=== PATIENT | male | born 1960 | race Caucasian/White ===

== ENCOUNTER 2020-02-09 16:03 | Inpatient (IN) | payer MEDICARE, MEDICAID ==
[~2020-02-09] VITALS: Ht 188 cm; Wt 100.9 kg
[~2020-02-09 16:03] MED LIST: 0.9 % SODIUM CHLORIDE 10 ML VIAL ONE; AMLO5TAB PO; ATOR40TA7 PO; CHLO5CAP3 PO; CYCL10TA26 PO; FAMO40TA73 PO; IBUP-1984 PO; NITR0.4T SL; PHEN100C4 PO; etomidate 2mg/ml inj. ONE
--- NOTE | 2020-02-09 16:03 | NUR ---
Dr. Arellano to the door of the room and evaluated the patient from a distance and received some verbal report from REACH crew. Pt is intubated but copious amount of clear secretions noted. Respiratory therapist is attempting to suction the patient. Pt is bucking against the vent and is attempting to sit up. REACH crew gave additional fentanyl to attempt to help sedate the patient while transitioning care until the ED staff can take over the care and manage the patient's status.
[2020-02-09] MEDS ORDERED: normal saline 1000ml 1,000 ML IV ONE (16:05)
[2020-02-09] MEDS ORDERED: MIDAZolam 5mg/ml 2ml vial IV ONE (16:10)
[2020-02-09] MEDS ORDERED: succinylcholine 20mg/ml inj IV ONE ×2 (16:10→16:40)
[2020-02-09] MEDS ORDERED: midazolam 100mg in NS 100ml 100 ML IV PRN (16:10)
--- NOTE | 2020-02-09 16:15 | NUR ---
Pt continued to fight against the vent and bucking the ET Tube. Respiratory noted an air leak from the ET tube. Dr. Arellano to the bedside to extubate and re-intubate the patient. Due to being placed in a COVID-19 rule out status the equipment is being gathered and handed through the ante room to the ED staff to intubate the patient.
--- NOTE | 2020-02-09 16:20 | NUR ---
Pt is being given RSI medications given for the patient to be intubated. ET tube placed by Dr. Arellano, placement verified with color change, and lung sound auscultation. Pt placed on the ventilator and settings being managed by RT at bedside. Multiple attempts to start a second IV line and collect blood work has been unsuccessful. Will attempt to start another line momentarily.
--- NOTE | 2020-02-09 16:50 | NUR ---
Pt's sedation medications are being titrated to maintain proper sedation due to the ventilator at this time.
[2020-02-09 16:51] LABS: ABG BASE EXCESS -8.8 mmol/L (-2.0-3.0); ABG OXYGEN SATURATION 99.3 % (95-98); ABG PCO2 (T) 47.6 mmHg (35.0-45.0); ABG PH (T) 7.218 (7.350-7.450); ABG PO2 (T) 525.3 mmHg (83-108); ALLEN'S TEST POSITIVE; FCOHb 2.2 % (0.5-1.5); FMetHb 0.3 % (0.3-1.12); FO2Hb 96.8 % (94-100); PEEP 5 cm H2O; RESPIRATORY RATE 20 b/min; TIDAL VOLUME 400 mL; TOTAL HEMOGLOBIN 14.1 G/dl (14.0-17.9)
[2020-02-09 17:05] LABS: BASOPHILS # (AUTO) 0.1 X10'3 (0-0.2); BASOPHILS % (AUTO) 0.6 % (0-1); EOSINOPHILS # (AUTO) 0.1 X10'3 (0-0.9); EOSINOPHILS % (AUTO) 0.9 % (0-6); HEMATOCRIT 40.2 % (42.0-52.0); HEMOGLOBIN 13.4 g/dl (14.0-17.9); LYMPHOCYTES # (AUTO) 5.3 X10'3 (1.1-4.8); MEAN CORPUSCULAR HEMOGLOBIN 31.4 PG (27.0-31.0); MEAN CORPUSCULAR HGB CONC 33.4 g/dL (33.0-36.5); MEAN CORPUSCULAR VOLUME 93.9 FL (78-98); MEAN PLATELET VOLUME 7.6 FL (7.4-10.4); MONOCYTES # (AUTO) 0.7 X10'3 (0-0.9); MONOCYTES % (AUTO) 5.8 % (2-12); NEUTROPHILS # (AUTO) 5.8 X10'3 (1.8-7.7); NEUTROPHILS % (AUTO) 48.7 % (42-75); PLATELET COUNT 280 X10'3 (140-440); RED BLOOD COUNT 4.28 X10'6 (4.70-6.10); RED CELL DISTRIBUTION WIDTH 13.4 % (11.5-14.5)
[2020-02-09] MEDS ORDERED: FENTANYL-0.9 % NACL/PF 100 ML IV PRN (17:05)
[2020-02-09 17:17] LABS: PARTIAL THROMBOPLASTIN TIME 24 SECONDS (22-32)
[2020-02-09] MEDS ORDERED: LIDOcaine 2% 10ml TOPICAL JELLY (Urojet) TP ONE (17:20)
[2020-02-09] MEDS ORDERED: midazolam 2 mg/2 ml injection IV ONE (17:20)
[2020-02-09] MEDS ORDERED: potassium Cl 20 mEq SR tablet PO PRN ×2 (17:20)
[2020-02-09] MEDS ORDERED: acetaminophen 325mg tablet PO PRN ×2 (17:20)
[2020-02-09] MEDS ORDERED: potassium CL 10mEq/100ml bag 100 ML IV PRN ×2 (17:20)
[2020-02-09] MEDS ORDERED: ipratropium/albuterol 3ml nebule NEB PRN (17:20)
[2020-02-09] MEDS ORDERED: fentaNYL/PF 50MCG/1 ML 2ML syringe IV PRN (17:20)
[2020-02-09 17:23] LABS: ALANINE AMINOTRANSFERASE 27 U/L (12-78); ALBUMIN 3.7 G/DL (3.4-5.0); ALBUMIN/GLOBULIN RATIO 1.2 (1.1-1.5); ALKALINE PHOSPHATASE 47 IU/L (46-116); ANION GAP 12 (8-16); ASPARTATE AMINO TRANSFERASE 41 U/L (10-37); BILIRUBIN,TOTAL 0.3 MG/DL (0.1-1.0); BLOOD UREA NITROGEN 9 MG/DL (7-18); BUN/CREATININE RATIO 10.6 (5.4-32.0); CALCIUM 7.4 MG/DL (8.5-10.1); CHLORIDE 107 MMOL/L (99-107); CREATININE 0.85 MG/DL (0.60-1.10); GLUCOSE 124 MG/DL (70-104); SODIUM 142 MMOL/L (135-145); TOTAL CARBON DIOXIDE 22.7 MMOL/L (24-32); TOTAL PROTEIN 6.7 G/DL (6.4-8.2); eGFR > 90 ML/MIN
[2020-02-09] MEDS ORDERED: etomidate 2mg/ml inj. IV ONE (17:25)
[2020-02-09 17:28] LABS: ETHANOL 0.233 GM/DL (0.0-0.010)
[2020-02-09 17:30] LABS: LACTATE DEHYDROGENASE 245 U/L (85-227); POTASSIUM 3.8 MMOL/L (3.5-5.1)
--- NOTE | 2020-02-09 17:30 | NUR ---
POSITIVE PLACEMENT ETT PER DR PARKINSON VIA XRAY. PRIMARY RN WILMAN AND RT AT BEDSIDE MADE AWARE.
--- NOTE | 2020-02-09 17:30 | NUR ---
DR PARKINSON STATES NO HEAD CT WILL BE ORDERED FOR PATIENT, PRIMARY RN WILMAN MADE AWARE.
--- NOTE | 2020-02-09 17:38 | NUR ---
COVID-RAPID SWAB OBTAINED PER MD ORDER.
[2020-02-09] MEDS ORDERED: ALBU18HF2 (17:45)
[2020-02-09] MEDS ORDERED: IBUP-1986 (17:45)
[2020-02-09] MEDS ORDERED: ATOR20TA66 PO (17:45)
[2020-02-09] MEDS ORDERED: AMOX500C4 (17:45)
[2020-02-09] MEDS ORDERED: GABA-532 PO (17:45)
[2020-02-09] MEDS: methylPREDNISolone sod succ 125mg/2ml vial IV SCH ×2 (17:46→20:36)
[2020-02-09] MEDS: normal saline 1000ml 1,000 ML IV SCH (17:47)
[2020-02-09] MEDS: CefTRIAXone/D5W-Rocephin 1gm 50 ML IV SCH (17:51)
--- NOTE | 2020-02-09 18:16 | NUR ---
Pt's sister, Janeth, called requesting update on pt's condition.
--- NOTE | 2020-02-09 18:30 | NUR ---
CALL FROM [facility] STATES PATIENT RECENTLY SEEN AND HAD LABS DRAWN AT [facility] [phone] MADE AWARE.
[2020-02-09 18:33] LABS: CLARITY,URINE CLEAR (Clear); COLOR,URINE YELLOW (Yellow); GLUCOSE, URINE NEGATIVE (Neg); KETONES,URINE TRACE mg/dl (Neg); LEUKOCYTE ESTERASE ,URINE NEGATIVE (Neg); NITRITES, URINE NEGATIVE (Neg); OCCULT BLOOD,URINE NEGATIVE (Neg); PH,URINE 5.5 (4.8-8.0); PROTEIN,URINE NEGATIVE (Neg); UROBILINOGEN,URINE 0.2 E.U/dL (0.2-1.0)
[2020-02-09 18:45] LABS: URINE AMPHETAMINE SCREEN NEGATIVE (Neg); URINE BARBITUATE SCREEN NEGATIVE (Neg); URINE BENZODIAZEPINES SCREEN POSITIVE (Neg); URINE CANNABINOID SCREEN NEGATIVE (Neg); URINE COCAINE SCREEN NEGATIVE (Neg); URINE METHADONE SCREEN NEGATIVE (Neg); URINE OPIATE SCREEN NEGATIVE (Neg); URINE PHENCYCLIDINE SCREEN NEGATIVE (Neg)
[2020-02-09 18:50] LABS: UA COLLECTION TYPE FOLEY CATH
[2020-02-09 19:05] LABS: TOTAL CELLS COUNTED 100
[2020-02-09 19:07] LABS: PLATELET ESTIMATE NORMAL
[2020-02-09 19:45] VITALS: BP 156/81
[2020-02-09] MEDS: ipratropium/albuterol 3ml nebule NEB SCH ×2 (19:50→23:08)
[2020-02-09 20:00] VITALS: BP 94/50
[2020-02-09] MEDS: famotidine/PF 10 mg/ml inj IV SCH (20:36)
[2020-02-09] MEDS: heparin, porcine 5000 units/ml vial SQ SCH (20:36)
[2020-02-09] MEDS: docusate sod 100mg capsule PO SCH (20:36)
[2020-02-09 21:00] VITALS: BP 102/55
[2020-02-09] MEDS: midazolam 100mg in NS 100ml 100 ML IV PRN (21:46)
[2020-02-09] MEDS: FENTANYL-0.9 % NACL/PF 100 ML IV PRN (21:46)
[2020-02-09 22:00] VITALS: BP 102/56
[2020-02-09 23:00] VITALS: BP 99/59
[2020-02-10] VITALS (24 sets, daily range): BP systolic 97–142; BP diastolic 52–81
[2020-02-10] MEDS: midazolam 100mg in NS 100ml 100 ML IV PRN ×4 (02:36→21:51)
[2020-02-10] MEDS: methylPREDNISolone sod succ 125mg/2ml vial IV SCH ×4 (02:36→19:50)
[2020-02-10] MEDS: FENTANYL-0.9 % NACL/PF 100 ML IV PRN ×3 (02:36→19:51)
[2020-02-10] MEDS: normal saline 1000ml 1,000 ML IV SCH ×2 (03:39→21:51)
[2020-02-10] MEDS: ipratropium/albuterol 3ml nebule NEB SCH ×6 (03:44→23:09)
[2020-02-10 03:56] LABS: ABG BASE EXCESS -5.1 mmol/L (-2.0-3.0); ABG HCO3 21.8 mmol/L (22.0-26.0); ABG OXYGEN SATURATION 95.8 % (95-98); ABG PCO2 (T) 46.5 mmHg (35.0-45.0); ABG PH (T) 7.285 (7.350-7.450); ABG PO2 (T) 83.5 mmHg (83-108); ALLEN'S TEST POSITIVE; FCOHb 0.1 % (0.5-1.5); FMetHb 0.1 % (0.3-1.12); FO2Hb 95.6 % (94-100); PATIENT TEMPERATURE 36.2; PEEP 5 cm H2O; RESPIRATORY RATE 20 b/min; TIDAL VOLUME 450 mL; TOTAL HEMOGLOBIN 13.2 G/dl (14.0-17.9)
[2020-02-10 03:59] LABS: BASOPHILS % (AUTO) 0.1 % (0-1); EOSINOPHILS % (AUTO) 0 % (0-6); HEMATOCRIT 39.2 % (42.0-52.0); LYMPHOCYTES # (AUTO) 0.8 X10'3 (1.1-4.8); LYMPHOCYTES % (AUTO) 6.9 % (21-51); MEAN CORPUSCULAR HEMOGLOBIN 31.2 PG (27.0-31.0); MEAN CORPUSCULAR HGB CONC 33.1 g/dL (33.0-36.5); MEAN CORPUSCULAR VOLUME 94.3 FL (78-98); MEAN PLATELET VOLUME 7.6 FL (7.4-10.4); MONOCYTES # (AUTO) 0.1 X10'3 (0-0.9); MONOCYTES % (AUTO) 1.2 % (2-12); NEUTROPHILS # (AUTO) 10.8 X10'3 (1.8-7.7); NEUTROPHILS % (AUTO) 91.8 % (42-75); PLATELET COUNT 224 X10'3 (140-440); RED BLOOD COUNT 4.15 X10'6 (4.70-6.10); RED CELL DISTRIBUTION WIDTH 13.6 % (11.5-14.5); WHITE BLOOD COUNT 11.8 X10'3 (4.5-11.0)
[2020-02-10 04:11] LABS: ALANINE AMINOTRANSFERASE 26 U/L (12-78); ALBUMIN 3.4 G/DL (3.4-5.0); ALBUMIN/GLOBULIN RATIO 1.2 (1.1-1.5); ALKALINE PHOSPHATASE 37 IU/L (46-116); ANION GAP 9 (8-16); ASPARTATE AMINO TRANSFERASE 29 U/L (10-37); BILIRUBIN,TOTAL 0.2 MG/DL (0.1-1.0); BLOOD UREA NITROGEN 13 MG/DL (7-18); BUN/CREATININE RATIO 13.8 (5.4-32.0); CALCIUM 7.8 MG/DL (8.5-10.1); CHLORIDE 108 MMOL/L (99-107); CREATININE 0.94 MG/DL (0.60-1.10); GLUCOSE 139 MG/DL (70-104); MAGNESIUM 2.1 MG/DL (1.5-2.4); PHOSPHORUS 4.4 MG/DL (2.3-4.5); SODIUM 141 MMOL/L (135-145); TOTAL CARBON DIOXIDE 23.8 MMOL/L (24-32); TOTAL PROTEIN 6.3 G/DL (6.4-8.2); eGFR 82 ML/MIN
[2020-02-10] MEDS: MVI, adult No.4 with vit. K 10 ML in dextrose 5% water 500ml 500 ML IV SCH ×2 (07:11)
[2020-02-10] MEDS: thiamine inj. 100 MG in normal saline 100ml IV soln 100 ML IV SCH (07:17)
[2020-02-10] MEDS: azithromycin/NS 500mg/250ml 250 ML IV SCH (07:17)
[2020-02-10] MEDS: CefTRIAXone/D5W-Rocephin 1gm 50 ML IV SCH (07:17)
[2020-02-10] MEDS: docusate sod 100mg capsule PO SCH ×2 (07:18→20:27)
[2020-02-10] MEDS: gabapentin 300mg capsule PO SCH ×3 (07:18→20:27)
[2020-02-10] MEDS: amLODIPine 5mg tablet PO SCH (07:18)
[2020-02-10] MEDS: heparin, porcine 5000 units/ml vial SQ SCH ×2 (07:18→19:50)
[2020-02-10] MEDS: atorvastatin 20mg tablet PO SCH (07:18)
[2020-02-10] MEDS: famotidine/PF 10 mg/ml inj IV SCH ×2 (07:54→19:50)
[2020-02-10] MEDS ORDERED: famotidine 20mg tablet PO SCH (08:00)
--- NOTE | 2020-02-10 09:23 | NUR ---
Pt moved to room 2010 as he has been cleared of Covid isolation
--- NOTE | 2020-02-10 10:59 | NUR ---
Physical Therapy attempted to work with patient
--- NOTE | 2020-02-10 11:14 | NUR ---
Initial: Pt intubated admit w/ acute respiratory failure, etoh abuse blood alcohol.233 on admit, and hx COPD. Pt has been ruled out for covid. Is receiving thiamin/banana bag for etoh. OG in place w/ MAP 72 this AM. TF recs below in case prolonged intubation; bed scale this AM ~97kg per RN since pt does have a pillow and additional items which cannot be removed on bed currently. New BMI 27. Will continue to monitor. Rec: 1. IF TF; Vital HP at 90ml/hr goal 2. IF TF; water flush 200ml Q4 3. IF TF; PALB Q /; daily wts 4. thiamin, folic, MVI given etoh hx 5. upon extubation; advance diet as medically indicated to heart healthy Addendum: 02/10/20 at [address] Amended: Links added.
[2020-02-10] MEDS: lactobacillus rhamnosus 10,000 MMU CELLS/CAPSULE PO SCH (19:50)
[2020-02-10] MEDS: mineral oil/petrolatum ophthal oint EACHEYE SCH (20:27)
[2020-02-11] VITALS (24 sets, daily range): BP systolic 106–176; BP diastolic 55–78
[2020-02-11] MEDS: midazolam 100mg in NS 100ml 100 ML IV PRN ×5 (01:09→20:14)
[2020-02-11] MEDS: FENTANYL-0.9 % NACL/PF 100 ML IV PRN ×4 (01:13→21:28)
[2020-02-11] MEDS: mineral oil/petrolatum ophthal oint EACHEYE SCH ×4 (02:00→20:05)
[2020-02-11] MEDS: methylPREDNISolone sod succ 125mg/2ml vial IV SCH ×4 (02:00→20:04)
[2020-02-11] MEDS: ipratropium/albuterol 3ml nebule NEB SCH ×6 (03:18→23:05)
[2020-02-11 04:00] LABS: ABG BASE EXCESS -2.6 mmol/L (-2.0-3.0); ABG OXYGEN SATURATION 91.1 % (95-98); ABG PCO2 (T) 41.1 mmHg (35.0-45.0); ABG PH (T) 7.361 (7.350-7.450); ABG PO2 (T) 55.9 mmHg (83-108); ALLEN'S TEST POSITIVE; FCOHb 0.3 % (0.5-1.5); FO2Hb 90.8 % (94-100); PATIENT TEMPERATURE 36.2; PEEP 5 cm H2O; RESPIRATORY RATE 20 b/min; TIDAL VOLUME 450 mL; TOTAL HEMOGLOBIN 12.9 G/dl (14.0-17.9)
[2020-02-11 05:38] LABS: BASOPHILS # (AUTO) 0.1 X10'3 (0-0.2); BASOPHILS % (AUTO) 0.3 % (0-1); EOSINOPHILS % (AUTO) 0 % (0-6); HEMATOCRIT 38.6 % (42.0-52.0); HEMOGLOBIN 12.6 g/dl (14.0-17.9); LYMPHOCYTES # (AUTO) 1.1 X10'3 (1.1-4.8); LYMPHOCYTES % (AUTO) 5.6 % (21-51); MEAN CORPUSCULAR HEMOGLOBIN 30.9 PG (27.0-31.0); MEAN CORPUSCULAR HGB CONC 32.6 g/dL (33.0-36.5); MEAN CORPUSCULAR VOLUME 94.8 FL (78-98); MEAN PLATELET VOLUME 8.7 FL (7.4-10.4); MONOCYTES # (AUTO) 0.9 X10'3 (0-0.9); MONOCYTES % (AUTO) 4.8 % (2-12); NEUTROPHILS # (AUTO) 17.4 X10'3 (1.8-7.7); NEUTROPHILS % (AUTO) 89.3 % (42-75); PLATELET COUNT 237 X10'3 (140-440); RED BLOOD COUNT 4.08 X10'6 (4.70-6.10); RED CELL DISTRIBUTION WIDTH 13.6 % (11.5-14.5); WHITE BLOOD COUNT 19.5 X10'3 (4.5-11.0)
[2020-02-11 05:48] LABS: ALANINE AMINOTRANSFERASE 23 U/L (12-78); ALBUMIN 3.3 G/DL (3.4-5.0); ALBUMIN/GLOBULIN RATIO 1.1 (1.1-1.5); ALKALINE PHOSPHATASE 35 IU/L (46-116); ANION GAP 9 (8-16); BILIRUBIN,TOTAL 0.4 MG/DL (0.1-1.0); BLOOD UREA NITROGEN 17 MG/DL (7-18); BUN/CREATININE RATIO 19.1 (5.4-32.0); CALCIUM 8.2 MG/DL (8.5-10.1); CHLORIDE 107 MMOL/L (99-107); CREATININE 0.89 MG/DL (0.60-1.10); GLUCOSE 135 MG/DL (70-104); MAGNESIUM 2.4 MG/DL (1.5-2.4); SODIUM 141 MMOL/L (135-145); TOTAL CARBON DIOXIDE 25.4 MMOL/L (24-32); TOTAL PROTEIN 6.4 G/DL (6.4-8.2); eGFR 88 ML/MIN
[2020-02-11 05:49] LABS: ASPARTATE AMINO TRANSFERASE 33 U/L (10-37); PHOSPHORUS 3.5 MG/DL (2.3-4.5); POTASSIUM 4.7 MMOL/L (3.5-5.1)
[2020-02-11] MEDS: normal saline 1000ml 1,000 ML IV SCH ×2 (07:01→23:05)
[2020-02-11] MEDS: docusate sod 100mg capsule PO SCH (08:00)
[2020-02-11 08:12] LABS: GASTRIC OCCULT BLOOD POSITIVE (Neg)
[2020-02-11] MEDS: thiamine inj. 100 MG in normal saline 100ml IV soln 100 ML IV SCH (08:31)
[2020-02-11] MEDS: azithromycin/NS 500mg/250ml 250 ML IV SCH (08:31)
[2020-02-11] MEDS: CefTRIAXone/D5W-Rocephin 1gm 50 ML IV SCH (08:31)
[2020-02-11] MEDS: heparin, porcine 5000 units/ml vial SQ SCH ×2 (08:32→20:05)
[2020-02-11] MEDS: famotidine/PF 10 mg/ml inj IV SCH ×2 (08:32→20:04)
[2020-02-11] MEDS: MVI, adult No.4 with vit. K 10 ML in dextrose 5% water 500ml 500 ML IV SCH ×2 (08:32)
[2020-02-11] MEDS: atorvastatin 20mg tablet PO SCH (08:38)
[2020-02-11] MEDS: amLODIPine 5mg tablet PO SCH (08:38)
[2020-02-11] MEDS: lactobacillus rhamnosus 10,000 MMU CELLS/CAPSULE PO SCH ×2 (08:38→20:04)
[2020-02-11] MEDS: gabapentin 300mg capsule PO SCH (08:39)
--- NOTE | 2020-02-11 08:42 | NUR ---
fentanyl reassessment not not at 0200 and gentears not reported as given.
[2020-02-11] MEDS ORDERED: acetaminophen 325mg/10.15ml oral unit dose solution OGT PRN (08:49)
[2020-02-11] MEDS ORDERED: POTASSIUM BICARB 20meq eff tab 20 MEQ TABLET.EFF OGT PRN ×2 (08:49→08:50)
[2020-02-11] MEDS: dexmedetomidin/NS 400mcg/100ml 100 ML IV SCH ×2 (10:58→18:09)
--- NOTE | 2020-02-11 11:52 | NUR ---
TF Consult: Pt remains intubated to start TF today per MD. MAP 96 this AM. Recs below. Will monitor for TF tolerance. Initial: Pt intubated admit w/ acute respiratory failure, etoh abuse blood alcohol.233 on admit, and hx COPD. Pt has been ruled out for covid. Is receiving thiamin/banana bag for etoh. OG in place w/ MAP 72 this AM. TF recs below in case prolonged intubation; bed scale this AM ~97kg per RN since pt does have a pillow and additional items which cannot be removed on bed currently. New BMI 27. Will continue to monitor. Rec: 1. TF per MD using Vital HP at 90ml/hr goal; to provide 2160ml fluid, 1814ml free water, 2160kcals, and 189g protein. 2. additional water flush 200ml Q4 3. PALB Q /; daily wts 4. thiamin, folic, MVI given etoh hx 5. routine bowel care 6. upon extubation; advance diet as medically indicated to heart healthy Addendum: 02/11/20 at [address] Amended: Links added.
[2020-02-11] MEDS: gabapentin 300mg capsule OGT SCH ×2 (13:22→21:00)
--- NOTE | 2020-02-11 18:17 | NUR ---
Problems reprioritized. Patient report given, questions answered & plan of care reviewed with CINDY RN.
[2020-02-11] MEDS: docusate sodium 100mg/10ml UD cup OGT SCH (20:04)
[2020-02-12] VITALS (23 sets, daily range): BP systolic 123–206; BP diastolic 59–89
[2020-02-12] MEDS: dexmedetomidin/NS 400mcg/100ml 100 ML IV SCH ×2 (00:43→13:27)
[2020-02-12] MEDS: methylPREDNISolone sod succ 125mg/2ml vial IV SCH ×2 (01:40→07:31)
[2020-02-12] MEDS: mineral oil/petrolatum ophthal oint EACHEYE SCH ×2 (02:03→07:21)
[2020-02-12] MEDS: ipratropium/albuterol 3ml nebule NEB SCH ×6 (03:07→23:00)
[2020-02-12] MEDS: FENTANYL-0.9 % NACL/PF 100 ML IV PRN (03:39)
[2020-02-12] MEDS: midazolam 100mg in NS 100ml 100 ML IV PRN (03:39)
[2020-02-12 03:44] LABS: BASOPHILS % (AUTO) 0.2 % (0-1); EOSINOPHILS % (AUTO) 0 % (0-6); HEMATOCRIT 40.7 % (42.0-52.0); HEMOGLOBIN 13.4 g/dl (14.0-17.9); LYMPHOCYTES # (AUTO) 0.9 X10'3 (1.1-4.8); LYMPHOCYTES % (AUTO) 4.1 % (21-51); MEAN CORPUSCULAR HEMOGLOBIN 30.9 PG (27.0-31.0); MEAN CORPUSCULAR VOLUME 93.5 FL (78-98); MEAN PLATELET VOLUME 7.7 FL (7.4-10.4); MONOCYTES # (AUTO) 0.8 X10'3 (0-0.9); MONOCYTES % (AUTO) 3.6 % (2-12); NEUTROPHILS # (AUTO) 20.5 X10'3 (1.8-7.7); NEUTROPHILS % (AUTO) 92.1 % (42-75); PLATELET COUNT 210 X10'3 (140-440); RED BLOOD COUNT 4.35 X10'6 (4.70-6.10); RED CELL DISTRIBUTION WIDTH 13.5 % (11.5-14.5); WHITE BLOOD COUNT 22.2 X10'3 (4.5-11.0)
[2020-02-12 03:49] LABS: ALANINE AMINOTRANSFERASE 11 U/L (12-78); ALBUMIN 3.2 G/DL (3.4-5.0); ALKALINE PHOSPHATASE 36 IU/L (46-116); ANION GAP 6 (8-16); ASPARTATE AMINO TRANSFERASE 25 U/L (10-37); BILIRUBIN,TOTAL 0.3 MG/DL (0.1-1.0); BLOOD UREA NITROGEN 16 MG/DL (7-18); BUN/CREATININE RATIO 19.3 (5.4-32.0); CALCIUM 8.2 MG/DL (8.5-10.1); CHLORIDE 107 MMOL/L (99-107); CREATININE 0.83 MG/DL (0.60-1.10); GLUCOSE 164 MG/DL (70-104); MAGNESIUM 2.3 MG/DL (1.5-2.4); PHOSPHORUS 3.5 MG/DL (2.3-4.5); POTASSIUM 4.2 MMOL/L (3.5-5.1); SODIUM 141 MMOL/L (135-145); TOTAL CARBON DIOXIDE 27.9 MMOL/L (24-32); TOTAL PROTEIN 6.5 G/DL (6.4-8.2); eGFR > 90 ML/MIN
[2020-02-12 04:25] LABS: ABG BASE EXCESS 0.9 mmol/L (-2.0-3.0); ABG HCO3 26.5 mmol/L (22.0-26.0); ABG OXYGEN SATURATION 92.4 % (95-98); ABG PCO2 (T) 45.1 mmHg (35.0-45.0); ABG PH (T) 7.384 (7.350-7.450); ABG PO2 (T) 61.4 mmHg (83-108); FCOHb 0.2 % (0.5-1.5); FMetHb 0.3 % (0.3-1.12); FO2Hb 91.9 % (94-100); PATIENT TEMPERATURE 36.5; PEEP 5 cm H2O; RESPIRATORY RATE 20 b/min; TIDAL VOLUME 450 mL; TOTAL HEMOGLOBIN 13.2 G/dl (14.0-17.9)
--- NOTE | 2020-02-12 06:21 | NUR ---
Patient in room CICU 2009. I have received report from Rubi CANTU and had the opportunity to ask questions and assume patient care.
[2020-02-12] MEDS: MVI, adult No.4 with vit. K 10 ML in dextrose 5% water 500ml 500 ML IV SCH ×2 (07:30)
[2020-02-12] MEDS: azithromycin/NS 500mg/250ml 250 ML IV SCH (07:30)
[2020-02-12] MEDS: CefTRIAXone/D5W-Rocephin 1gm 50 ML IV SCH (07:31)
[2020-02-12] MEDS: famotidine/PF 10 mg/ml inj IV SCH ×2 (07:31→19:58)
[2020-02-12] MEDS: thiamine inj. 100 MG in normal saline 100ml IV soln 100 ML IV SCH (07:31)
[2020-02-12] MEDS: docusate sodium 100mg/10ml UD cup OGT SCH ×2 (07:31→20:00)
[2020-02-12] MEDS: amLODIPine 5mg tablet OGT SCH (07:32)
[2020-02-12] MEDS: gabapentin 300mg capsule OGT SCH ×3 (07:32→20:56)
[2020-02-12] MEDS: lactobacillus rhamnosus 10,000 MMU CELLS/CAPSULE PO SCH ×2 (07:32→20:00)
[2020-02-12] MEDS: heparin, porcine 5000 units/ml vial SQ SCH ×2 (07:32→19:59)
[2020-02-12] MEDS: atorvastatin 20mg tablet OGT SCH (07:33)
[2020-02-12] MEDS ORDERED: levetiracetam-NS 1000mg/100ml 100 ML IV ONE (08:35)
[2020-02-12] MEDS ORDERED: racepinephrine 11.25mg/0.5ml nebule IH PRN (09:55)
[2020-02-12] MEDS ORDERED: naloxone 0.4 mg/ml inj IV PRN (09:55)
[2020-02-12] MEDS ORDERED: CADD PCA waste documentation MC PRN (09:55)
--- NOTE | 2020-02-12 11:30 | NUR ---
1125- pt's eyes and head rolled back, pt became stiff with posturing, lifted body off bed so his body was flat right arm and left leg started shaking then pt went limp. a minute later pt postured again, started rapid breathing at 53 and slight desat to 88% RA. Unresponsive to verbal or painful stimuli. change control manager informed. María Elena CANTU charge came over to evaluate pt. Pt still unresponsive to stimuli. Small blink reflex.
[2020-02-12] MEDS: normal saline 1000ml 1,000 ML IV SCH (12:02)
[2020-02-12] MEDS: ondansetron/PF 4mg/2ml inj IV PRN ×2 (14:01→18:43)
[2020-02-12] MEDS: methylPREDNISolone sod succ/PF 40mg inj. IV SCH ×2 (16:35→23:50)
[2020-02-12] MEDS: acetaminophen 325mg/10.15ml oral unit dose solution OGT PRN (18:00)
--- NOTE | 2020-02-12 18:21 | NUR ---
Problems reprioritized. Patient report given, questions answered & plan of care reviewed with Karlee CANTU.
--- NOTE | 2020-02-12 19:16 | NUR ---
received awake , alert , claimed wants his IV stop because it make him so nauseous , explained the importance of IV fluids but claimed he wants it stop.
[2020-02-12] MEDS ORDERED: proCHLORperazine 10 MG/2 ml inj IV ONE (19:50)
[2020-02-12] MEDS ORDERED: simethicone 40mg/0.6ml oral drops 30ml PO PRN (19:50)
[2020-02-12] MEDS: LORazepam 2 mg/ml vial IV PRN ×2 (19:58→23:50)
[2020-02-12] MEDS ORDERED: levetiracetam inj 750 MG in normal saline 100ml IV soln 92.5 ML IV SCH (20:00)
[2020-02-12] MEDS ORDERED: levetiracetam 250mg tablet PO SCH (20:00)
[2020-02-12] MEDS: NORMAL SALINE IV SCH (20:18)
[2020-02-12] MEDS: LEVETIRACETAM IV SCH (20:18)
--- NOTE | 2020-02-12 23:07 | NUR ---
Patient refused SVN treatment, requested no 0300 treatment as well.
[2020-02-13] VITALS (18 sets, daily range): BP systolic 118–150; BP diastolic 52–82
[2020-02-13] MEDS: ondansetron/PF 4mg/2ml inj IV PRN ×3 (00:58→21:19)
[2020-02-13] MEDS: normal saline 1000ml 1,000 ML IV SCH ×2 (01:18→07:43)
[2020-02-13] MEDS: ipratropium/albuterol 3ml nebule NEB SCH ×4 (02:55→19:00)
[2020-02-13] MEDS: LORazepam 2 mg/ml vial IV PRN ×6 (04:23→21:24)
[2020-02-13 05:18] LABS: BASOPHILS % (AUTO) 0.1 % (0-1); EOSINOPHILS % (AUTO) 0 % (0-6); HEMATOCRIT 37.8 % (42.0-52.0); HEMOGLOBIN 12.5 g/dl (14.0-17.9); LYMPHOCYTES # (AUTO) 1.1 X10'3 (1.1-4.8); LYMPHOCYTES % (AUTO) 5.6 % (21-51); MEAN CORPUSCULAR HEMOGLOBIN 30.8 PG (27.0-31.0); MEAN CORPUSCULAR HGB CONC 33.1 g/dL (33.0-36.5); MEAN CORPUSCULAR VOLUME 92.9 FL (78-98); MEAN PLATELET VOLUME 8.2 FL (7.4-10.4); MONOCYTES # (AUTO) 0.9 X10'3 (0-0.9); MONOCYTES % (AUTO) 4.6 % (2-12); NEUTROPHILS # (AUTO) 17.4 X10'3 (1.8-7.7); NEUTROPHILS % (AUTO) 89.7 % (42-75); PLATELET COUNT 176 X10'3 (140-440); RED BLOOD COUNT 4.07 X10'6 (4.70-6.10); RED CELL DISTRIBUTION WIDTH 13.5 % (11.5-14.5); WHITE BLOOD COUNT 19.4 X10'3 (4.5-11.0)
[2020-02-13 05:38] LABS: ALANINE AMINOTRANSFERASE 23 U/L (12-78); ALKALINE PHOSPHATASE 32 IU/L (46-116); ANION GAP 7 (8-16); ASPARTATE AMINO TRANSFERASE 29 U/L (10-37); BILIRUBIN,TOTAL 0.4 MG/DL (0.1-1.0); BLOOD UREA NITROGEN 15 MG/DL (7-18); BUN/CREATININE RATIO 18.3 (5.4-32.0); CALCIUM 8.8 MG/DL (8.5-10.1); CHLORIDE 106 MMOL/L (99-107); CREATININE 0.82 MG/DL (0.60-1.10); GLUCOSE 120 MG/DL (70-104); MAGNESIUM 2.3 MG/DL (1.5-2.4); PHOSPHORUS 3.9 MG/DL (2.3-4.5); POTASSIUM 3.8 MMOL/L (3.5-5.1); SODIUM 142 MMOL/L (135-145); TOTAL CARBON DIOXIDE 29.5 MMOL/L (24-32); TOTAL PROTEIN 6.1 G/DL (6.4-8.2); eGFR > 90 ML/MIN
--- NOTE | 2020-02-13 06:22 | NUR ---
Problems reprioritized. Patient report given, questions answered & plan of care reviewed with NADYA CANTU.
--- NOTE | 2020-02-13 06:30 | NUR ---
Patient in room CICU 2009. I have received report from Karlee CANTU and had the opportunity to ask questions and assume patient care.
[2020-02-13] MEDS: azithromycin/NS 500mg/250ml 250 ML IV SCH (07:40)
[2020-02-13] MEDS: MVI, adult No.4 with vit. K 10 ML in dextrose 5% water 500ml 500 ML IV SCH ×2 (07:40)
[2020-02-13] MEDS: thiamine inj. 100 MG in normal saline 100ml IV soln 100 ML IV SCH (07:41)
[2020-02-13] MEDS: CefTRIAXone/D5W-Rocephin 1gm 50 ML IV SCH (07:41)
[2020-02-13] MEDS: famotidine/PF 10 mg/ml inj IV SCH ×2 (07:42→19:50)
[2020-02-13] MEDS: heparin, porcine 5000 units/ml vial SQ SCH ×2 (07:42→19:54)
[2020-02-13] MEDS: LEVETIRACETAM IV SCH ×2 (07:42→21:09)
[2020-02-13] MEDS: methylPREDNISolone sod succ/PF 40mg inj. IV SCH (07:42)
[2020-02-13] MEDS: NORMAL SALINE IV SCH ×2 (07:42→21:09)
[2020-02-13] MEDS: gabapentin 300mg capsule OGT SCH ×3 (08:00→21:09)
[2020-02-13] MEDS: docusate sodium 100mg/10ml UD cup OGT SCH ×2 (08:00→19:54)
[2020-02-13] MEDS: lactobacillus rhamnosus 10,000 MMU CELLS/CAPSULE PO SCH ×2 (08:00→19:54)
[2020-02-13] MEDS: amLODIPine 5mg tablet OGT SCH (08:00)
[2020-02-13] MEDS: atorvastatin 20mg tablet OGT SCH (08:00)
--- NOTE | 2020-02-13 11:21 | NUR ---
Reassessment: Pt has been extubated and TF discontinued. Pt s/p BSS 02/[address] recs NPO and reassess as pt aspirated after swallowing per ST note. Pt currently documented as A/O x2. Pt would benefit from Corpak to meet nutrient needs if unable to pass BSS. No documented LBM however unable to provide nutrition intervention d/t NPO status. Pt with active bowel care meds although not being provided d/t being NPO. Will continue to follow closely. Rec: 1. Advance to heart healthy diet as medically indicated if safe for PO intake pending f/u BSS 2. If unable to pass BSS and to receive EN, continuous Vital HP at 90ml/hr goal; to provide 2160ml fluid, 1814 ml free water, 2160kcals, and 189g protein. 3. If EN, additional water flush 200ml Q4H 4. If EN, PALB Q /; daily wts 5. continue routine thiamine, folic, MVI given EtOH hx 6. routine bowel care Addendum: 02/13/20 at [address] Amended: Links added.
--- NOTE | 2020-02-13 12:54 | NUR ---
Report called to receiving nurse. 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 Special Issues communicated to receiving nurse, Sandra CANTU.
[2020-02-13] MEDS: acetaminophen 325mg/10.15ml oral unit dose solution OGT PRN ×2 (13:57→23:58)
--- NOTE | 2020-02-13 15:09 | NUR ---
Patient refused SVN tx @ this time. No Shortness of breath noted. pt nauseajaden, anita aware Addendum: 02/13/20 at 1509 by Graciela Smith RT Amended: Links added.
--- NOTE | 2020-02-13 18:48 | NUR ---
Problems reprioritized. Patient report given, questions answered & plan of care reviewed with ALONDRA Antunez.
[2020-02-13] MEDS: ALPRAZolam 0.25mg tablet PO PRN (19:50)
[2020-02-13] MEDS ORDERED: LEVETIRACETAM IV SCH (22:35)
[2020-02-13] MEDS ORDERED: NORMAL SALINE IV SCH (22:35)
[2020-02-14] MEDS: LORazepam 2 mg/ml vial IV PRN ×5 (00:58→12:52)
[2020-02-14 03:00] VITALS: BP 136/83
[2020-02-14 06:01] LABS: BASOPHILS % (AUTO) 0.2 % (0-1); EOSINOPHILS % (AUTO) 0.2 % (0-6); HEMATOCRIT 41.2 % (42.0-52.0); HEMOGLOBIN 13.6 g/dl (14.0-17.9); LYMPHOCYTES # (AUTO) 2.3 X10'3 (1.1-4.8); LYMPHOCYTES % (AUTO) 13.7 % (21-51); MEAN CORPUSCULAR HEMOGLOBIN 30.6 PG (27.0-31.0); MEAN CORPUSCULAR HGB CONC 33.1 g/dL (33.0-36.5); MEAN CORPUSCULAR VOLUME 92.4 FL (78-98); MEAN PLATELET VOLUME 8.5 FL (7.4-10.4); MONOCYTES % (AUTO) 5.9 % (2-12); NEUTROPHILS # (AUTO) 13.5 X10'3 (1.8-7.7); PLATELET COUNT 170 X10'3 (140-440); RED BLOOD COUNT 4.46 X10'6 (4.70-6.10); RED CELL DISTRIBUTION WIDTH 13.2 % (11.5-14.5); WHITE BLOOD COUNT 16.8 X10'3 (4.5-11.0)
[2020-02-14 06:22] LABS: ALANINE AMINOTRANSFERASE 43 U/L (12-78); ALBUMIN 3.1 G/DL (3.4-5.0); ALBUMIN/GLOBULIN RATIO 0.9 (1.1-1.5); ALKALINE PHOSPHATASE 34 IU/L (46-116); ANION GAP 4 (8-16); ASPARTATE AMINO TRANSFERASE 31 U/L (10-37); BILIRUBIN,TOTAL 0.5 MG/DL (0.1-1.0); BLOOD UREA NITROGEN 18 MG/DL (7-18); CALCIUM 8.6 MG/DL (8.5-10.1); CHLORIDE 105 MMOL/L (99-107); CREATININE 0.75 MG/DL (0.60-1.10); GLUCOSE 97 MG/DL (70-104); MAGNESIUM 2.2 MG/DL (1.5-2.4); PHOSPHORUS 4.1 MG/DL (2.3-4.5); POTASSIUM 3.4 MMOL/L (3.5-5.1); SODIUM 138 MMOL/L (135-145); TOTAL CARBON DIOXIDE 28.7 MMOL/L (24-32); TOTAL PROTEIN 6.4 G/DL (6.4-8.2); eGFR > 90 ML/MIN
--- NOTE | 2020-02-14 06:25 | NUR ---
Problems reprioritized. Patient report given, questions answered & plan of care reviewed with Myesha CANTU
--- NOTE | 2020-02-14 06:30 | NUR ---
Patient in room PCU 3025. I have received report from ALONDRA Meneses and had the opportunity to ask questions and assume patient care. Patient asleep in bed and in no acute distress.
[2020-02-14 07:00] VITALS: BP 124/75
[2020-02-14] MEDS: famotidine/PF 10 mg/ml inj IV SCH (07:50)
[2020-02-14] MEDS: atorvastatin 20mg tablet OGT SCH (07:52)
[2020-02-14] MEDS: lactobacillus rhamnosus 10,000 MMU CELLS/CAPSULE PO SCH (07:53)
[2020-02-14] MEDS: gabapentin 300mg capsule OGT SCH ×2 (07:53→12:52)
[2020-02-14] MEDS: amLODIPine 5mg tablet OGT SCH (07:54)
[2020-02-14] MEDS: heparin, porcine 5000 units/ml vial SQ SCH (07:55)
[2020-02-14] MEDS: docusate sodium 100mg/10ml UD cup OGT SCH (08:00)
[2020-02-14] MEDS ORDERED: methylPREDNISolone sod succ/PF 40mg inj. IV SCH (08:00)
[2020-02-14] MEDS: CefTRIAXone/D5W-Rocephin 1gm 50 ML IV SCH (08:32)
[2020-02-14] MEDS: azithromycin/NS 500mg/250ml 250 ML IV SCH (09:08)
[2020-02-14] MEDS: thiamine inj. 100 MG in normal saline 100ml IV soln 100 ML IV SCH (10:29)
[2020-02-14] MEDS: MVI, adult No.4 with vit. K 10 ML in dextrose 5% water 500ml 500 ML IV SCH ×2 (10:29)
[2020-02-14] MEDS ORDERED: AZIT250T82 PO (12:20)
[2020-02-14] MEDS ORDERED: ALPR-149 PO (12:20)
[2020-02-14] MEDS ORDERED: LEVE250T4 PO (12:20)
[2020-02-14] MEDS ORDERED: PRED5TAB PO (12:20)
[2020-02-14] MEDS: ALPRAZolam 0.25mg tablet PO PRN (15:23)
--- NOTE | 2020-02-14 15:27 | NUR ---
Patient stable for discharge per MD orders. All discharge instructions reviewed and questions answered appropriately. Belongings collected and sent with patient. New prescriptions were called in to [facility] in [place], and written prescription for Xanax given to patient on discharge. PIV discontinued and cannula intact. executive vice president and chief operating officer discontinued. Patient wheeled down to the lobby and left via private vehicle.
[2020-02-14] MEDS ORDERED: LEVETIRACETAM NS 500 MG/100 ML IV SCH (20:00)
== END 2020-02-14 15:27 | disposition home or self-care (01) | DRG 208 ==
LOC: ER 16:04 → ED HOLD 17:18 → CICU 2S 20:09 → PCU 3S 02-13 14:28
PROVIDERS: ADMIT Internal Medicine Critical Care Medicine; ATTEND Physician Assistant
PROC: 5A1945Z Respiratory Ventilation, 24-96 Consecutive Hours (ICD-10-PCS; principal; 2020-02-09)
PROC: 0BH17EZ Insertion of Endotracheal Airway into Trachea, Via Natural or Artificial Opening (ICD-10-PCS; 2020-02-09)
DX: J96.20 Acute and chronic respiratory failure, unspecified whether with hypoxia or hypercapnia (principal); E87.4 Mixed disorder of acid-base balance; J44.1 Chronic obstructive pulmonary disease with (acute) exacerbation; F10.229 Alcohol dependence with intoxication, unspecified; E87.6 Hypokalemia; Y90.7 Blood alcohol level of 200-239 mg/100 ml; M54.9 Dorsalgia, unspecified; F41.9 Anxiety disorder, unspecified; G89.29 Other chronic pain; I10 Essential (primary) hypertension; Z03.818 Encounter for observation for suspected exposure to other biological agents ruled out; Z87.891 Personal history of nicotine dependence
CPT/HCPCS: 31500; 36415; 36600; 71045; 76937; 80053; 80305; 80320; 81003; 82140; 82271; 82803; 82948; 83605; 83615; 83735; 83880; 84100; 84134; 84145; 84484; 85018; 85025; 85379; 85610; 85730; 86885; 86900; 86901; 87040; 87070; 87081; 92508; 92616; 93005; 94002; 94003; 94640; 94760; 97110; 97116; 97161; 97530; 99291; G0378; J0330; J0456; J0696; J0780; J1644; J1953; J2060; J2405; J2920; J2930; J3010; J3411; J3490; J7030; J7060